=== PATIENT | male | born 1965 | race Caucasian/White ===

== ENCOUNTER → 2016-05-30 | Outpatient (CLI) | payer OTHER ==
--- NOTE | ~2016-05-30 | MR17 ---
[facility] A Service of [facility] RADIOLOGY TEXT RESULTS PATIENT: UMM BLANK LOCATION: [facility] : 65 UNIT #: [id number] AGE: [address]: Raquel Griffith MD SEX: M ORDER DR: [id number] [place] [id number] O MR#: [id number] Acc #: [id number] NAME: UMM BLANK : 1965 SEX: M STUDY DATE/TIME: 05/30/2016 11:47 UNIT: [facility] ROOM: STUDY DESCRIPTION: MR Brain WWo Contrast Attending Physician: Raquel Griffith M.D., Ph.D. Referring Physician: Raquel Griffith M.D., Ph.D. Ordering Physician: Raquel Griffith M.D., Ph.D. Primary Care Physician: Zaynab Hernandez M.D. MRI CENTER REPORT This report is preliminary unless electronic signature is present. EXAM MRI of the brain with and without. HISTORY Increasing dizziness/off balance, especially when lying down and then sitting up, for 3 weeks. No known injury or surgery. No history of cancer. History of low platelets and white blood cells per patient. COMMENT MRI brain was performed prior to and following intravenous administration of 19 mL of MultiHance. There is no previous. Study performed with 1.5T wide-bore imaging technique. There is no evidence for a recent ischemic insult on the diffusion series. No Chiari-I malformation. There is some fluid or inflammatory change left side mastoid air cells. No extraaxial fluid collection. No MRI evidence for intracranial hemorrhage. The basilar cisterns are patent. Major intracranial flow voids are maintained. Bermudez-white junction is relatively well-maintained. Following contrast administration, there is no pathologic intracranial enhancement or intracranial mass lesion suspected. Borderline volume loss in general for age group. IMPRESSION 1. Borderline volume loss in general for age group otherwise essentially normal MRI of the brain without contrast. 2. Small amount of fluid or inflammatory change in the left side mastoid air cells probably not of further clinical significance. Please correlate further clinically. 1. Dictated by... Katelyn Griffin M.D. [facility] A Service of [facility] RADIOLOGY TEXT RESULTS PATIENT: UMM BLANK LOCATION: [facility] : 65 UNIT #: [id number] AGE: [address]: Raquel Griffith MD SEX: M ORDER DR: THIS IS AN ELECTRONICALLY VERIFIED REPORT Katelyn Griffin M.D. at 05/31/2016 12:04 PM Анна TD: 05/31/2016 11:40 JOB #: [id number] MRI CENTER REPORT Page 1 of 1
== END | disposition home or self-care (01) ==
LOC: SMRI 11:26
DX: R42 Dizziness and giddiness (principal); R26.9 Unspecified abnormalities of gait and mobility; R68.89 Other general symptoms and signs
CPT/HCPCS: 70553; A9581

== ENCOUNTER → 2016-09-27 | Outpatient (CLI) | payer OTHER ==
--- NOTE | ~2016-09-27 | CR63 ---
[facility] A Service of [facility] & [facility] RADIOLOGY TEXT RESULTS PATIENT: UMM BLANK LOCATION: [facility] : 65 UNIT #: [id number] AGE: [address]: Zaynab Hernandez MD SEX: M ORDER DR: [id number] [facility] [address] [place], [place] [address] [id number] O MR#: [id number] Acc #: [id number] NAME: UMM BLANK : 1965 SEX: M STUDY DATE/TIME: 09/27/2016 15:09 UNIT: [facility] ROOM: STUDY DESCRIPTION: CR Chest 2 View Attending Physician: Zaynab Hernandez M.D. Referring Physician: Zaynab Hernandez M.D. Ordering Physician: Zaynab Hernandez M.D. Primary Care Physician: Zaynab Hernandez M.D. MEDICAL IMAGING REPORT This report is preliminary unless electronic signature is present EXAM Chest PA and lateral 09/27/2016 HISTORY Shortness of breath on exertion for 3 days. Tobacco use. Rheumatoid arthritis. Smoking history for 20 years. FINDINGS The heart is normal in size. The lungs are hyperinflated with emphysematous and fibrotic changes characteristic of COPD. No airspace consolidation is seen. Pleural thickening blunts the left costophrenic angle. 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 No active pulmonary disease. Dictated by... Alexey Santos M.D. THIS IS AN ELECTRONICALLY VERIFIED REPORT Alexey aSntos M.D. at 09/30/2016 6:07 AM MARC/mulu TD: 09/27/2016 20:57 JOB #: [id number] MEDICAL IMAGING REPORT Page 1 of 1 COPY
== END | disposition home or self-care (01) ==
LOC: CRAD 14:47
DX: M06.9 Rheumatoid arthritis, unspecified (principal); J44.9 Chronic obstructive pulmonary disease, unspecified; J84.10 Pulmonary fibrosis, unspecified; J92.9 Pleural plaque without asbestos; F17.200 Nicotine dependence, unspecified, uncomplicated
CPT/HCPCS: 71020